=== PATIENT | female | born 1950 | race African-American/Black ===

== ENCOUNTER 2017-05-22 10:26 | Emergency (ER) | payer OTHER ==
[~2017-05-22] VITALS: Ht 157.5 cm; Wt 76.6 kg
[2017-05-22 10:56] LABS: BASOPHIL COUNT 0.1 K/uL (0-0.1); EOSINOPHIL (%) 3.2 % (0-5); EOSINOPHIL COUNT 0.3 K/uL (0-0.3); HEMATOCRIT 38.3 % (36.0-46.0); IMMATURE GRANULOCYTE (%) 0.4 % (0.0-0.7); INSTRUMENT ABS NEUTROPHIL CT 5.6 K/uL; LYMPHOCYTE COUNT 3.4 K/uL (1.0-2.8); MCH 27.3 PG (29.0-34.0); MCHC 32.4 G/DL (30.0-36.0); MCV 84.4 FL (83-99); MEAN PLAT.VOLUME 12.2 uM^3 (9.5-12.4); NEUTROPHIL (%) 53.2 % (45-76); NEUTROPHIL COUNT 5.6 K/uL (1.8-6.4); PLATELET COUNT 241 K/uL (156-360); RBC DIS.WIDTH-CV 14.3 % (11.8-14.6); RBC DIS.WIDTH-SD 44.2 % (39-53); RED BLOOD COUNT 4.54 M/uL (3.80-5.20); WHITE BLOOD COUNT 10.4 K/uL (4.1-10.2)
[2017-05-22 11:04] LABS: PROTHROMBIN TIME 11.4 SEC (10.2-12.9)
[2017-05-22 11:05] LABS: CHLORIDE 103 mEq/L (99-109); POTASSIUM 3.9 mEq/L (3.7-5.4); SODIUM 138 mEq/L (136-147)
[2017-05-22 11:06] LABS: PTT 30.2 SEC (25-37)
[2017-05-22 11:07] LABS: GLUCOSE 115 mg/dL (70-99)
[2017-05-22 11:08] LABS: ANION GAP 11 MEQ/L (2-14)
[2017-05-22 11:11] LABS: GFR ESTIMATE (CALCULATED) > 59 mL/min/; UREA NITROGEN (BUN) 13 mg/dL (9-23)
[2017-05-22 11:17] LABS: TROP-I INTERPRETATION NEGATIVE; TROPONIN-I < 0.01 ng/mL (0.0-0.30)
[2017-05-22] MEDS ORDERED: TYLENOL WITH C1 EACH PO (13:11)
[2017-05-22 13:31] VITALS: BP 167/87
== END 2017-05-22 14:35 | disposition home or self-care (01) ==
LOC: EME 10:26
PROVIDERS: Emergency Medicine
DX: R51 Headache (principal); R42 Dizziness and giddiness; I10 Essential (primary) hypertension; Z85.41 Personal history of malignant neoplasm of cervix uteri; Z88.0 Allergy status to penicillin
CPT/HCPCS: 70450; 71010; 80048; 84484; 85025; 85610; 85730; 93005; 99281; 99284; J2270; J2405

== ENCOUNTER 2017-05-24 10:52 | Emergency (ER) | payer OTHER ==
[~2017-05-24] VITALS: Ht 157.5 cm; Wt 74.0 kg
[~2017-05-24 10:52] MED LIST: TYLENOL WITH C1 EACH PO
[2017-05-24] MEDS ORDERED: CLONIDINE HCL0.1 MG PO (13:07)
[2017-05-24 13:27] VITALS: BP 144/70
== END 2017-05-24 13:53 | disposition home or self-care (01) ==
LOC: EME 10:52
DX: I10 Essential (primary) hypertension (principal); F17.200 Nicotine dependence, unspecified, uncomplicated; Z85.41 Personal history of malignant neoplasm of cervix uteri; Z79.82 Long term (current) use of aspirin; Z88.0 Allergy status to penicillin
CPT/HCPCS: 99281; 99285